=== PATIENT | female | born 1975 | race Caucasian/White ===

== ENCOUNTER 2019-05-22 10:37 | Emergency (ER) | payer OTHER, SELFPAY ==
[2019-05-22 10:45] VITALS: BP 140/82; PULSE 76; RESP 14; TEMP 36.5; O2SAT 100
--- NOTE | 2019-05-22 11:09 | DI.RAD.S_ITS ---
PROCEDURE: XR FINGER LT MIN 2V INDICATIONS: lac to tip of left 2nd finger TECHNIQUE: AP hand, 2 views of the left second finger(s) acquired. COMPARISON: None. FINDINGS: Bones: No fractures or dislocations. No suspicious bony lesions. Soft tissues: No suspicious soft tissue calcifications. IMPRESSION: No acute bony injuries. No opaque foreign bodies. Dictated by: Alex Lorenzana M.D. on 05/22/2019 at 11:42 Approved by: Alex Lorenzana M.D. on 05/22/2019 at 11:46
--- NOTE | 2019-05-22 11:17 | ED_ITS ---
HPI - Skin/Abscess/Foreign Bdy <Marie Pineda PA-C - Last Filed: 05/22/19 20:32> General Chief complaint: Skin/Abscess/Foreign Body Stated complaint: Lt pointer finger cut Time Seen by Provider: 05/22/19 11:38 Source: patient Mode of arrival: ambulatory Limitations: no limitations History of Present Illness HPI narrative: This 43-year-old female comes to ED secondary to left pointer fin tracie laceration which occurred last night. She was trying to separate frozen patties cut the finger on the serrated edge of a metal spatula. She rinsed it out some last night, states it was bleeding profusely last night. She bandaged it, wonders whether antibiotics or stitches needed as it has been quite red and swollen today. It is tender. She has not noted numbness or weakness. She denies any other injury. She does not know the date of her last tetanus vaccine. Related Data Previous Rx's Medication Instructions Recorded cephalexin [Keflex] 500 mg PO Q6H #20 cap 05/22/19 Allergies Allergy/AdvReac Type Severity Reaction Status Date / Time No Known Drug Allergies Allergy Verified 05/22/19 10:47 Review of Systems <Marie Pineda PA-C - Last Filed: 05/22/19 20:32> Review of Systems ROS Unobtainable: All systems reviewed & are unremarkable except as noted in HPI and below PFSH <Marie Pineda PA-C - Last Filed: 05/22/19 20:32> Medical History (Updated 05/22/19 @ 12:01 by Marie Pineda PA-C) Healthy female (Chronic) Surgical History (Updated 05/22/19 @ 11:49 by Marie Pineda PA-C) Status post section (Resolved) Social History Smoking Status: Former smoker Social History Smoking Status: Former smoker Exam <Marie Pineda PA-C - Last Filed: 05/22/19 20:32> Narrative Exam Narrative: GENERAL APPEARANCE: Patient sitting comfortably, in no distress. LUNGS: Clear to auscultation bilaterally. HEART: Rate and rhythm regular without murmur, normal S1 and S2, no S3 or S4. DERMATOLOGIC: Left pointer finger there is a scabbed avulsion with no active bleeding. It is on the lateral border and lateral side of the pad measuring a total of 1.5 cm. Surrounding skin is moderately edematous and erythematous NEUROVASCULAR: Left pointer finger tip is warm and pink, sensation grossly intact MUSCULOSKELETAL: Full active range of motion of the left pointer finger tip, strength is intact in all khan against resistance Initial Vital Signs Initial Vital Signs: Vital Signs Temperature 97.7 F 05/22/19 10:45 Pulse Rate 76 05/22/19 10:45 Respiratory Rate 14 05/22/19 10:45 Blood Pressure 140/82 05/22/19 10:45 Pulse Oximetry 100 05/22/19 10:45 <Alona Carter DO - Last Filed: 05/23/19 07:11> Initial Vital Signs Initial Vital Signs: Vital Signs Temperature 97.7 F 05/22/19 10:45 Pulse Rate 76 05/22/19 10:45 Respiratory Rate 14 05/22/19 10:45 Blood Pressure 140/82 05/22/19 10:45 Pulse Oximetry 100 05/22/19 10:45 Course <Marie Pineda PA-C - Last Filed: 05/22/19 20:32> Orders Ordered: Discontinued Medications Diphtheria/Tetanus/Acell Pertussis (Adacel) 0.5 ml IM .ONCE ONE Stop: 05/22/19 11:46 Last Admin: 05/22/19 12:23 Dose: 0.5 ml Ibuprofen (Advil) 800 mg PO NOW ONE Stop: 05/22/19 11:46 Last Admin: 05/22/19 12:22 Dose: 800 mg Vital Signs - 8 hr 05/22/19 12:52 Temperature 98.4 F Pulse Rate 75 Respiratory Rate 18 Blood Pressure 136/64 Pulse Oximetry 98 <Alona Carter DO - Last Filed: 05/23/19 07:11> Orders Ordered: Discontinued Medications Diphtheria/Tetanus/Acell Pertussis (Adacel) 0.5 ml IM .ONCE ONE Stop: 05/22/19 11:46 Last Admin: 05/22/19 12:23 Dose: 0.5 ml Ibuprofen (Advil) 800 mg PO NOW ONE Stop: 05/22/19 11:46 Last Admin: 05/22/19 12:22 Dose: 800 mg Vital Signs - 8 hr 05/22/19 12:52 Temperature 98.4 F Pulse Rate 75 Respiratory Rate 18 Blood Pressure 136/64 Pulse Oximetry 98 MDM - Skin/Abscess/Foreign Bdy <Marie Pineda PA-C - Last Filed: 05/22/19 20:32> Imaging Data finger: Radiologist's impression: Kiesha Edgar 43 F [address] [address] XRay Report Signed Patient: Kiesha Edgar GMR#: [id number] : 1975Acct:[id number] Age/Sex: 43 / FDate of Service: 05/22/19 Loc: ED Accession Number: [id number] Procedure: XR finger LT min 2V Ordering Provider: Marie Pineda P.A-C PROCEDURE: XR FINGER LT MIN 2V INDICATIONS: lac to tip of left 2nd finger TECHNIQUE: AP hand, 2 views of the left second finger(s) acquired. COMPARISON: None. FINDINGS: Bones: No fractures or dislocations. No suspicious bony lesions. Soft tissues: No suspicious soft tissue calcifications. IMPRESSION: No acute bony injuries. No opaque foreign bodies. Dictated by: Alex Lorenzana M.D. on 05/22/2019 at 11:42 Approved by: Alex Lorenzana M.D. on 05/22/2019 at 11:46 Discharge Plan Departure Patient Disposition: Home Clinical Impression: Avulsion of skin of finger Qualifiers: Encounter type: initial encounter Qualified Code(s): S61.209A - Unspecified open wound of unspecified finger without damage to nail, initial encounter Discharge Date/Time: 05/22/19 12:53 Interventions: ED Discharge Assessment Last Done: 05/22/19 12:52 Instructions: DI for Avulsion Laceration (Not Requiring Sutures) Activity Restrictions/Additional Instructions: The wound on your finger is scabbed and does not appear to need sutures now. There is no sign of bone injury on the x-ray. It is swollen and a little bit red which may be due to the injury, however I have prescribed an antibiotic for you to start and remain on over the weekend. Please recheck this with your primary care provider on Saturday or Saturday if it is not improving. You should return here as we talked about if you have any new symptoms such as fever or spreading redness/streaking, increased pain or swelling or difficulty moving the finger. Please keep it covered with a nonstick dressing and use the fingertip protector that we gave you. Prescriptions: New cephalexin [Keflex] 500 mg capsule 500 mg PO Q6H Qty: 20 RF: 0 Referrals: [facility] [Provider Group] <Alona Carter, - Last Filed: 05/23/19 07:11> Cosign ED Attending Cedricature Attestation: I was immediately available in the department for consultation. Documentation has been reviewed. I agree with assessment and plan.
[2019-05-22] MEDS: IBUPROFEN 400 MG TABLET 800 MG PO (12:22)
[2019-05-22] MEDS: TET,DIPH,PERTUSS(ACELL),VAC/PF 0.5 ML SYRINGE IM (12:23)
[2019-05-22 12:52] VITALS: BP 136/64; PULSE 75; RESP 18; TEMP 36.9; O2SAT 98
== END 2019-05-22 12:53 | disposition home or self-care (01) ==
PROVIDERS: Emergency Provider Internal Medicine
DX: S61.202A Unspecified open wound of right middle finger without damage to nail, initial encounter (principal); W26.8XXA Contact with other sharp object(s), not elsewhere classified, initial encounter; Z23 Encounter for immunization
CPT/HCPCS: 73140; 90471; 99282; 99283; 90715

== ENCOUNTER 2020-10-06 07:55 | Emergency (ER) | payer OTHER, SELFPAY ==
[2020-10-06 08:01] VITALS: BP 162/94; PULSE 88; RESP 18; TEMP 36.5; O2SAT 99; BMI 33.6
--- NOTE | 2020-10-06 08:44 | ED.FEMALEGU ---
HPI - Female Genitourinary General Chief complaint: Urogenital-Female Stated complaint: thinks she has a cyst in vagina Time Seen by Provider: 10/06/20 08:03 Source: patient Mode of arrival: Ambulatory Limitations: no limitations History of Present Illness HPI Narrative: Patient is a 45-year-old female who presents with vaginal swelling on the right side ongoing for 2 weeks. She has a history of breath when he insists she has had 2 in the past. 1 she had a Zimmerman catheter placed and the other she did not. She denies any fever or chills however his seems to be getting bigger and not going away MD Complaint: pelvic pain Related Data Previous Rx's Medication Instructions Recorded cephalexin [Keflex] 500 mg PO Q6H #20 cap 05/22/19 sulfamethoxazole-trimethoprim 1 tab PO BID 7 Days #14 tab 10/06/20 [Bactrim DS] Allergies Allergy/AdvReac Type Severity Reaction Status Date / Time No Known Drug Allergies Allergy Verified 05/22/19 10:47 Review of Systems Review of Systems ROS Unobtainable: All systems reviewed & are unremarkable except as noted in HPI and below Constitutional Constitutional: Denies chills, Denies fever(s), Denies lethargy and Denies weakness ENT Ears, Nose, Mouth, and Throat: Denies change in voice, Denies neck pain and Denies sore throat Gastrointestinal Gastrointestinal: Denies abdominal pain, Denies change in bowel habits, Denies diarrhea, Denies nausea and Denies vomiting Genitourinary Genitourinary: Reports as per HPI Genitourinary: Reports as per HPI Musculoskeletal Musculoskeletal: Denies neck pain Integumentary/Breasts Skin/Breast: Denies pruritus, Denies erythema, Denies rash and Denies wounds Neurologic Neurologic: Denies weakness Patient History Medical History (Updated 10/06/20 @ 08:48 by Alona Carter DO) Bartholin cyst Healthy female Surgical History (Updated 05/22/19 @ 11:49 by Marie Pineda PA-C) Status post section alcohol intake frequency: 0-2 drinks per day Substance Use Type: does not use Exam Initial Vital Signs Initial Vital Signs: Vital Signs Temperature 97.7 F 10/06/20 08:01 Pulse Rate 88 10/06/20 08:01 Respiratory Rate 18 10/06/20 08:01 Blood Pressure 162/94 H 11/19/20 08:01 Pulse Oximetry 99 10/06/20 08:01 GENERAL: Well-appearing, well-nourished and in no acute distress. CARDIOVASCULAR: peripheral pulses in tact, cap refill <2 sec RESPIRATORY: No respiratory distress, speaks in full sentences without difficulty MANAGER OF BUSINESS OPERATIONS: Right-sided breast on a cyst at approximately 3 cm EXTREMITIES: Normal range of motion, no clubbing or edema. Neurovascularly intact NEUROLOGICAL: Cranial nerves II through XII grossly intact. Normal gait and speech. SKIN: Warm, dry, no petechiae, no rashes or lesions. Procedures Abscess I/D I&D #1: Site: other (Bartholin cyst) Side (if applicable): right Local Anesthetic: lidocaine 1% Amount of anesthesia used (mL): 4 Technique: incised with #11 blade Amount of fluid expressed (mL): 8 Packing used?: Word catheter (Attempt at Zimmerman catheter multiple times unfortunately unsuccessful) Complications: pain and bleeding Course Orders Ordered: ED Orders 10/06/20 08:51 Wound Culture and Gram Stain Stat Discontinued Medications Lidocaine HCl (Lidocaine 1% (Pf)) 6 ml SUBCUT NOW ONE Stop: 10/06/20 08:10 Last Admin: 10/06/20 09:00 Dose: 6 ml Documented by: Vital Signs Vital signs: Vital Signs - 8 hr 10/06/20 08:01 10/06/20 09:06 Temperature 97.7 F 98.1 F Pulse Rate 88 84 Respiratory Rate 18 16 Blood Pressure 162/94 H 158/70 H Pulse Oximetry 99 98 MDM - Female Genitourinary MDM Narrative Medical decision making narrative: Zimmerman catheter was unsuccessful. She has no fever or systemic illness however because unable to place catheter she was placed on antibiotics culture is pending. Discharge Plan Departure Patient Disposition: Home Clinical Impression: Bartholin cyst Instructions: Bartholin Gland Cyst Activity Restrictions/Additional Instructions: *You have been diagnosed with Bartholin cyst *What to do: Unfortunately were catheter was unable to be placed you may have a reoccurrence. *Continue to take medications as directed Bactrim 1 tablet twice a day for 7 days--> SENT TO [facility] IN [place] *Follow up with your primary care provider in 2-3 days Call machine stapler to schedule follow-up appointment for recurrent cyst *Return to ER if you should have increasing swelling all redness fever or any new, worsening or concerning symptoms Prescriptions: New sulfamethoxazole-trimethoprim [Bactrim DS] 800-160 mg tablet 1 tab PO BID 7 Days Qty: 14 RF: 0 No Action cephalexin [Keflex] 500 mg capsule 500 mg PO Q6H Qty: 20 RF: 0 Referrals: Dead[place],MD Judith [Physician] - Ramila Boyd MD [Physician] - Adriana Rojas MD [Physician] -
[2020-10-06] MEDS: LIDOCAINE 1% (PF) 6 ML SUBCUT (09:00)
[2020-10-06 09:06] VITALS: BP 158/70; PULSE 84; RESP 16; TEMP 36.7; O2SAT 98
== END 2020-10-06 09:07 | disposition home or self-care (01) ==
LOC: ED 09:08
PROVIDERS: Emergency Provider Emergency Medicine
DX: N75.0 Cyst of Bartholin's gland (principal)
CPT/HCPCS: 10060; 87070; 87077; 87147; 87186; 87205; 99281; 99283

== ENCOUNTER 2023-08-22 10:32 | Day surgery (SDC) | payer OTHER, SELFPAY ==
[2023-08-20 08:45] VITALS: BMI 37.5
[2023-08-22] VITALS (8 sets, daily range): BP systolic 123–156; BP diastolic 75–97; PULSE 99–128; RESP 11–18; TEMP 36.2–36.8; O2SAT 92–99; BMI 36.0
--- NOTE | 2023-08-22 | PATH_ITS ---
[facility] Accession Number: [id number] No. of containers..01 Tissue . 01 Material submitted: . skin - RIGHT BARTHOLIN GLAND . 01 Diagnosis: Right Bartholin Gland, Lesion, Excision: Fragments of inflamed and ruptured cyst, largely denuded of lining epithelium, with reactive changes. Background Bartholin gland with focal mild chronic inflammation and duct ectasia with squamous metaplasia. Negative for granulomatous inflammation, dysplasia and malignancy. See comment. MRV 08/29/2023 1009 Local . 01 Comment: The entire specimen is submitted for histologic evaluation, and the findings are those of benign cyst, inflamed and ruptured, favor Bartholin gland origin. . There is no evidence of dysplasia or malignancy. . 01 Electronically signed: . Khadra Davis MD, Pathologist NPI- [id number] . 01 Gross description: . The specimen is received in formalin labeled with the patient's name, , and Bartholin gland, consists of multiple matias, semi-membranous soft tissue fragments aggregating to 2.9 x 2.5 x 1.3 cm. Sectioning reveals a matias, soft cut surface. The specimen is entirely submitted in cassettes A1-A5. ([id number]) /MRV 08/29/2023 1009 Local . 01 Pathologist provided ICD-10: N75.0 . 01 CPT . 512335 Specimen Comment: A courtesy copy of this report has been sent to [phone] Performed at: 01 [facility] [address] [place] [id number] MD Eric Shook MD Phone: [phone]
[2023-08-22] MEDS: LACTATED RINGERS 1,000 ML 42 ML IV ×2 (10:49→13:19)
--- NOTE | 2023-08-22 11:48 | PM.PREOP ---
Pre-operative Note COVID-19 COVID-19 status: Not tested Interval Note History & Physical reviewed/Exam performed by Physician: Yes Changes to H&P: No
[2023-08-22] MEDS: SCOPOLAMINE 1 PATCH TOP (11:54)
--- NOTE | 2023-08-22 12:21 | SUR.OPER ---
Lithotomy on padded OR bed, head on pillow, arms secured on padded arm boards at <90 degrees abduction. Legs secured in padded yellow fins stirrups.
[2023-08-22] MEDS: METHYLENE BLUE 50 MG/10 ML VIAL INJ (12:24)
[2023-08-22] MEDS: BUPIVACAINE 0.5% W/ EPI (PF) 30 ML VIAL 10 ML INJ (12:26)
--- NOTE | 2023-08-22 13:48 | PM.GYNOP.1 ---
Operative Date/Time/Diagnoses Date of procedure: 08/22/23 Time of procedure: 12:00 Pre-op diagnosis: Recurrent Bartholin's gland abscesses, right Post-op diagnosis: same Procedure & Clinicians Procedure: Procedures Operation Date: 08/22/23 11:45 Actual Procedure Side Surgeon p Removal of Bartholin's gland Right Bubba Schaeffer MD Indications: Kiesha returns today with what is her 3rd Bartholin's gland abscess since October 2022. The patient has had several word catheter placements dating back to 2004 and is understandably frustrated. She was told by another banana grader provider that gland removal may be prudent since she is had so many recurrent episodes of Bartholin's gland abscess and has never had significant persistent benefit from Word catheter placement. She has never undergone marsupialization. Oral clindamycin 150 mg p.o. q.6 hours x7 days prescribed after Word catheter placement on 08/16/2023. After consideration of all options for treatment of her recurrent right Bartholin's gland abscesses, the patient desires to have the gland removed rather than have marsupialization performed. Patient understands that removal of Bartholin's gland is a significantly more difficult and potentially risky procedure then marsupialization and carries the risk of scarring, pain at the excision site, and possible retention of Bartholin's gland fragments resulting in re-formation of cysts at the excision site possibly requiring additional surgery. With full understanding of the above, the patient presents now for right-sided Bartholin's gland removal. Surgeon: Bubba Schaeffer Anesthesia Type: General Operative Notes Findings: The Word catheter placed on 08/16/[address] The Bartholin's gland cyst cavity is smooth surfaced with no nodules but significant fibrous scarring is noted deep to the gland itself. Closure Type: primary Specimen(s): other (Right Bartholin's gland) Estimated blood loss (mL): 75 Blood products transfused: none Procedure in detail: With the patient under satisfactory general anesthesia in the modified dorsal lithotomy position, the perineum, vagina, and lower abdomen were prepped and draped in the usual manner for Bartholin's gland removal. Pre-surgical safety time-out was then taken in accordance with [facility] OR protocols. A Lone star retractor was placed. The Word catheter was then removed and a small red rubber catheter was used to instill methylene blue into the cyst cavity. The methylene blue was then removed and the cyst cavity irrigated with sterile saline before reinsertion of the Word catheter. The Word catheter incision site was extended with cutting current and the edges of the resection were mobilized with the [place] device. Using bayonet forceps bipolar to coagulate any adherent tissues/vessels, sharp and blunt dissection was used to excise the gland with the Word catheter in-situ. The dissection was slowly taken down circumferentially to the base were dense fibrous adhesions were encountered. The adhesions were divided with the bipolar current and sharp dissection. The gland was then removed and submitted as a pathologic specimen. All areas of glandular epithelium stained with methylene blue were removed. The base of the dissection was then secured with circumferential 4-0 Vicryl stitches to close the spaces. Complete hemostasis was thereby affected and the skin edges were brought together with 3-0 chromic in running interlocking stitches. Patient was then awakened from anesthesia and she was transferred to the PACU after having tolerated the procedure well. Complications: none Post-operative Condition: stable Disposition: PACU Plan for aftercare: Routine postoperative care with follow-up planned for 2 weeks postop
[2023-08-22] MEDS: OXYCODONE/ACETAMINOPHEN 5/325 TABLET 1 TAB PO (14:10)
[2023-08-22] MEDS: ONDANSETRON 4 MG/2 ML INJ IV (14:10)
== END 2023-08-22 15:41 | disposition home or self-care (01) ==
PROVIDERS: PCP Nurse Practitioner Family; Referring Provider Obstetrics & Gynecology; Visit Provider Obstetrics & Gynecology
PROC: (CPT 56740; principal; 2023-08-22 11:45)
DX: N75.0 Cyst of Bartholin's gland (principal)
CPT/HCPCS: 56740; 81025; J1100; J1170; J2250; J2405; J2704; J3010; Q9968

== ENCOUNTER → 2023-09-19 13:21 | Outpatient (CLI) | payer OTHER, SELFPAY ==
--- NOTE | 2023-09-19 | DI.MRI.S_ITS ---
PROCEDURE: MR LUMBAR SPINE WO CON INDICATIONS: Spinal stenosis, lumbar region TECHNIQUE: Noncontrast sagittal T1 spin echo and T2 fast echo, sagittal STIR, and T2 fast spin echo through the lumbar spine. In cases with scoliosis, additional coronal T2 fast spin echo may be performed. COMPARISON: [facility] Outside Film, MR, MR LUMBAR SPINE WITHOUT CONTRAST, 07/09/2023, 8:35. FINDINGS: Image quality: Excellent. Alignment and Curvature: No plain films are available for comparison, for numbering purposes. Thus, for the purposes of this examination, 5 lumbar type vertebral bodies will be presumed, as denoted on the montage panel. This should be confirmed and correlated with plain films, prior to any lumbar spinal intervention. There is loss of normal lumbar lordosis. 3 mm of retrolisthesis of L3 on L4, L4 on L5, and L5 on S1. Bone Marrow: Marrow is of normal overall signal. No acute vertebral body compression fractures. Mild reactive signal throughout the endplates of the lumbar spine. Spinal Cord: Conus medullaris terminates at the lower L1 level. Visualized cord demonstrates normal signal and size. Paraspinous Soft Tissues: No paravertebral masses. T12-L1: Normal appearance. L1-L2: Normal appearance. L2-L3: Normal appearance. L3-L4: Mild disc desiccation and diffuse disc bulge. Mild facet and ligamentum flavum hypertrophy. Mild epidural lipomatosis. Mild canal stenosis. Mild bilateral foraminal stenosis. No significant change. L4-L5: Mild disc height loss and desiccation. Mild diffuse disc bulge with small superimposed right paracentral protrusion. Mild epidural lipomatosis. Mild facet and ligamentum flavum hypertrophy. Mild canal stenosis. Mild bilateral foraminal stenosis. Mild posterior deviation of the right L5 nerve root within the lateral recess. No significant change. L5-S1: Mild disc desiccation and diffuse disc bulge with superimposed right posterolateral broad-based protrusion. Mild bilateral facet hypertrophy. Mild canal stenosis. Moderate bilateral foraminal stenosis. The disc protrusion abuts the right S1 nerve root within the lateral recess. No significant change. IMPRESSION: 1. Multilevel degenerative disc and facet disease, as well as ligamentum flavum hypertrophy and epidural lipomatosis. 2. Findings which may predispose to right L5 and S1 symptoms in the appropriate clinical setting. Clinical correlation recommended. Dictated by: Maxi Davis M.D. on 09/19/2023 at 15:29 Approved by: Maxi Davis M.D. on 09/19/2023 at 15:32
== END ==
PROVIDERS: PCP Nurse Practitioner Family; Referring Provider Orthopaedic Surgery Orthopaedic Surgery of the Spine; Visit Provider Orthopaedic Surgery Orthopaedic Surgery of the Spine
DX: M48.062 Spinal stenosis, lumbar region with neurogenic claudication (principal); M48.07 Spinal stenosis, lumbosacral region; M51.36 Other intervertebral disc degeneration, lumbar region; M51.37 Other intervertebral disc degeneration, lumbosacral region; M47.816 Spondylosis without myelopathy or radiculopathy, lumbar region; M47.817 Spondylosis without myelopathy or radiculopathy, lumbosacral region
CPT/HCPCS: 72148

== ENCOUNTER → 2024-05-11 07:10 | Outpatient (CLI) | payer OTHER, SELFPAY ==
--- NOTE | 2024-05-11 08:00 | DI.MRI.S_ITS ---
PROCEDURE: MR CERVICAL SPINE WO CON INDICATIONS: RADICULOPATHY TECHNIQUE: Noncontrast sagittal T1 spin echo and T2 fast spin echo, sagittal STIR, foraminal oblique sagittal T2 fast spin echo, and axial gradient echo or T2 fast spin echo through the cervical spine. COMPARISON: None. FINDINGS: Image quality: Excellent. Alignment and Curvature: There is normal bony alignment. Bone Marrow: Marrow demonstrates normal overall signal. Spinal Cord: Visualized spinal cord has normal size and signal. No cerebellar tonsillar herniation. Paraspinous Soft Tissues: No paravertebral masses. Prevertebral soft tissues are normal in thickness. C2-C3: Normal appearance. C3-C4: No canal stenosis. Mild left neural foraminal stenosis. No right neural foraminal narrowing. C4-C5: Mild disc desiccation. Broad-based disc bulge. No canal stenosis. Mild right neural foraminal narrowing. No left neural foraminal stenosis. C5-C6: Moderate disc desiccation and height loss. There is a broad-based left paracentral disc bulge which narrows the left lateral recess and deforms the left anterior aspect of the cord. No right foraminal stenosis. Moderate left neural foraminal stenosis. C6-C7: Moderate disc desiccation and height loss. Broad-based disc bulge. Mild canal stenosis. Mild right and moderate left neural foraminal stenosis. C7-T1: Normal appearance. IMPRESSION: 1. Left paracentral broad-based disc bulge at C5-6 with narrowing of the left lateral recess and moderate left foraminal stenosis. There is deformity of the anterior aspect of the cord at this level without cord signal abnormality. 2. Moderate left foraminal stenosis is also present at C6-7. 3. No canal stenosis Dictated by: Yi Coates M.D. on 05/11/2024 at 11:24 Approved by: Yi Coates M.D. on 05/11/2024 at 11:49
== END ==
LOC: MRI 07:10
PROVIDERS: PCP Nurse Practitioner Family; Referring Provider Orthopaedic Surgery Orthopaedic Surgery of the Spine; Visit Provider Orthopaedic Surgery Orthopaedic Surgery of the Spine
DX: M50.122 Cervical disc disorder at C5-C6 level with radiculopathy (principal); M48.02 Spinal stenosis, cervical region
CPT/HCPCS: 72141

== ENCOUNTER → 2024-12-24 12:24 | Outpatient (CLI) | payer OTHER, SELFPAY ==
--- NOTE | 2024-12-24 12:27 | DI.US.S_ITS ---
PROCEDURE: US PELVIC COMPLETE INDICATIONS: Dysmenorrhea TECHNIQUE: Real-time scanning was performed of the pelvic organs, with image documentation. Additional endovaginal scanning was necessary due to incomplete visualization of the adnexal and endometrial structures by transabdominal scanning. COMPARISON: None. FINDINGS: Uterus: Uterus is anteverted and enlarged in size at 9.4 x 5.3 x 4.2 cm. The myometrium is homogeneous. No discrete uterine fibroid is seen. The endometrium measures 12 mm combined thickness. Small amount of endometrial fluid is seen. No endometrial mass. Ovaries: The right ovary measures 3.1 x 2.4 x 2.3 cm, with a calculated ovarian volume of 8.9 cc. The left ovary measures 2.7 x 1 x 2 cm, with a calculated ovarian volume of 2.8 cc. 1.6 x 1.7 x 1.1 cm simple appearing cyst adjacent to right ovary is seen. Less than 12 follicles can be seen in each ovary. No adnexal masses are seen. Other: No pathologic free abdominal or pelvic fluid. IMPRESSION: 1. Mildly enlarged uterus without discrete uterine fibroids. Small amount of simple appearing endometrial fluid. No endometrial mass is seen. 2. Suggestion of 1.7 cm right para ovarian cyst. No solid appearing ovarian lesion. Normal appearing left ovary. No evidence of ovarian torsion. Short-term pelvic ultrasound follow-up in 4-6 weeks is recommended. We strive to produce accurate, complete, and clear reports of imaging services. To assist us in improving patient care, this report was composed using standard report templates and voice recognition software. Therefore, it may contain abnormal punctuation, insertions and/or omissions. Occasional wrong-word or sound-alike substitutions may occur. Though we review the report and make efforts to correct it, we do recommend that the report be read carefully in proper context to recognize any text inaccuracies. Dictated by: Dhruv Chew M.D. on 12/24/2024 at 15:06 Approved by: Dhruv Chew M.D. on 12/24/2024 at 15:12
== END ==
LOC: US 12:26
PROVIDERS: Referring Provider Student in an Organized Health Care Education/Training Program; Visit Provider Student in an Organized Health Care Education/Training Program
DX: N94.6 Dysmenorrhea, unspecified (principal); N85.2 Hypertrophy of uterus
CPT/HCPCS: 76856